=== PATIENT | male | born 1970 | race Caucasian/White ===

== ENCOUNTER 2021-12-17 07:50 | Outpatient (CLI) | payer BC, SELFPAY ==
--- NOTE | 2021-12-17 07:53 | EKG12_ITS ---
Test Reason : PREOP Blood Pressure : / mmHG Vent. Rate : 072 BPM Atrial Rate : 072 BPM P-R Int : 150 ms QRS Dur : 092 ms QT Int : 372 ms P-R-T Axes : 021 -02 018 degrees QTc Int : 407 ms Normal sinus rhythm Normal ECG Confirmed by SANDIE SIMS, CANDICE ([id number]), editorial manager ROCAEL LEVY ([id number]) on 12/17/2021 11:20:54 AM Referred By: Rolando Francisco Confirmed By:CANDICE HOOPER MD
[2021-12-17 08:34] LABS: Hematocrit 46.5 % (40-54); Hemoglobin 15.6 g/dL (13.0-16.5); Mean Corp Hgb Conc 33.5 g/dL (32-36); Mean Corpuscular Hgb 29.2 pg (27.0-32.0); Mean Corpuscular Volume 87.1 fL (80-94); Mean Platelet Vol. 9.6 fl (6.2-12.0); Platelet Count 321 K/mm3 (150-450); RBC Distribution Width CV 14.1 % (11.6-14.6); Red Blood Count 5.34 M/mm3 (4.6-6.2); White Blood Count 10.4 K/mm3 (4.4-11.0)
[2021-12-17 08:54] LABS: Anion Gap 4 (5-15); BUN 10 mg/dL (7-18); BUN/Creat Ratio 12.8 RATIO (10-20); Calcium,Total 8.7 mg/dL (8.5-10.1); Chloride 107 mmol/L (98-107); Creatinine, Serum 0.78 mg/dL (0.70-1.30); EST Glomerular Filtration Rate 112 mL/min (>60); Est Glom Filt Rate - Afr Amer 136 mL/min (>60); Glucose 103 mg/dL (74-106); Potassium 3.9 mmol/L (3.5-5.1); Sodium Level 138 mmol/L (136-145)
== END 2021-12-17 23:59 | disposition home or self-care (01) ==
LOC: PSN 07:51
PROVIDERS: PCP Family Medicine; Referring Provider Surgery; Visit Provider Surgery
DX: Z01.810 Encounter for preprocedural cardiovascular examination (principal); I83.92 Asymptomatic varicose veins of left lower extremity; Z20.822 Contact with and (suspected) exposure to COVID-19
CPT/HCPCS: 36415; 80048; 85027; 87426; 93005; C9803